=== PATIENT | female | born 1965 | race Caucasian/White ===

== ENCOUNTER 2016-07-15 17:08 | Emergency (ER) | payer BC, MEDICAID, OTHER ==
--- NOTE | 2016-07-15 17:32 | ED PDOC ---
Arrival/HPI - General Chief Complaint: Respiratory Distress Time Seen by Provider: 07/15/16 17:26 - History of Present Illness Narrative History of Present Illness (Text): 07/15/16 17:28 51F c/o sob and productive cough for the last few days. chest pain only when coughing. no fever. denies sig pmh. no smoking. she went to an urgent care today and they sent her here bc of her ecg. Past Medical History - Infectious Disease Hx of Infectious Diseases: None - Reproductive Menopause: No - Cardiac Hx Hypertension: Yes - Endocrine/Metabolic Hx Diabetes Mellitus Type 2: Yes - Psychiatric Hx Substance Use: No - Anesthesia Hx Anesthesia: No Family/Social History Family/Social History: Other (nc) Smoking Status: Unknown If Ever Smoked Hx Alcohol Use: No Hx Substance Use: No Allergies/Home Meds Allergies/Adverse Reactions: Allergies No Known Allergies Allergy (Verified 07/15/16 17:24) Home Medications: Home Meds Medication Instructions Recorded Confirmed Liraglutide [Victoza 2-Nicho] 0.6 mg SQ DAILY 07/15/16 07/15/16 MetFORMIN [glucOPHAGE] 500 mg PO BID 07/15/16 07/15/16 amLODIPine [Norvasc] 5 mg PO DAILY 07/15/16 07/15/16 Review of Systems - Review of Systems Constitutional: absent: Fatigue, Fevers Respiratory: SOB, Cough, Sputum. absent: Wheezing Cardiovascular: Edema (chronic) Gastrointestinal: absent: Abdominal Pain, Diarrhea, Nausea, Vomiting Genitourinary Female: absent: Dysuria Physical Exam Vital Signs Reviewed: Yes Vital Signs Temp Pulse Resp BP Pulse Ox 07/15/16 17:08 98.2 F 93 H 16 147/78 98 Appearance: Positive for: Well-Appearing, Non-Toxic, Comfortable Pain Distress: None Mental Status: Positive for: Alert and Oriented X 3 - Systems Exam Pupils: Present: PERRL Mouth: Present: Moist Mucous Membranes Neck: Present: Normal Range of Motion Respiratory/Chest: Present: Clear to Auscultation, Good Air Exchange. No: Respiratory Distress, Accessory Muscle Use Cardiovascular: Present: Regular Rate and Rhythm. No: Murmurs Abdomen: No: Tenderness, Distention Upper Extremity: Present: NORMAL PULSES Lower Extremity: Present: Edema (1+ bilateral ankles) Neurological: Present: GCS=15, Motor Func Grossly Intact, Normal Sensory Function, Other (no focal deficits) Skin: Present: Warm, Dry Psychiatric: Present: Alert, Oriented x 3 Medical Decision Making - RAD Interpretation Radiology Orders: 07/15/16 17:27 CHEST TWO VIEWS (PA/LAT) [RAD] Stat Disposition/Present on Arrival - Present on Arrival History of DVT/PE: No History of Uncontrolled Diabetes: No Urinary Catheter: No History of Decub. Ulcer: No History Surgical Site Infection Following: None
[2016-07-15 17:36] VITALS: TEMP 98.2
--- NOTE | 2016-07-15 17:37 | ED PDOC ---
Arrival/HPI - General Chief Complaint: Respiratory Distress Time Seen by Provider: 07/15/16 17:26 - History of Present Illness Narrative History of Present Illness (Text): 51F c/o productive cough and sob for the last couple days. chest pain only when coughing. no fever. she was sent here for an urgent care bc of her ecg. pmh dm and htn. no smoking. Past Medical History - Infectious Disease Hx of Infectious Diseases: None - Reproductive Menopause: No - Cardiac Hx Hypertension: Yes - Endocrine/Metabolic Hx Diabetes Mellitus Type 2: Yes - Psychiatric Hx Substance Use: No - Anesthesia Hx Anesthesia: No Family/Social History Family/Social History: Other (nc) Smoking Status: Unknown If Ever Smoked Hx Alcohol Use: No Hx Substance Use: No Allergies/Home Meds Allergies/Adverse Reactions: Allergies No Known Allergies Allergy (Verified 07/15/16 17:24) Home Medications: Home Meds Medication Instructions Recorded Confirmed Liraglutide [Victoza 2-Nicho] 0.6 mg SQ DAILY 07/15/16 07/15/16 MetFORMIN [glucOPHAGE] 500 mg PO BID 07/15/16 07/15/16 amLODIPine [Norvasc] 5 mg PO DAILY 07/15/16 07/15/16 Review of Systems - Review of Systems Constitutional: absent: Fevers Respiratory: SOB, Cough, Sputum. absent: Wheezing Cardiovascular: Edema (chronic) Gastrointestinal: absent: Abdominal Pain, Diarrhea, Nausea, Vomiting Genitourinary Female: absent: Dysuria Neurological: absent: Headache Physical Exam Vital Signs Reviewed: Yes Vital Signs Temp Pulse Resp BP Pulse Ox 07/15/16 20:51 89 17 132/84 95 07/15/16 19:08 0 L 07/15/16 19:05 88 16 135/83 96 07/15/16 17:08 98.2 F 93 H 16 147/78 98 Appearance: Positive for: Well-Appearing, Non-Toxic, Comfortable Pain Distress: None Mental Status: Positive for: Alert and Oriented X 3 - Systems Exam Head: Present: Atraumatic Pupils: Present: PERRL Conjunctiva: Present: Normal Mouth: Present: Moist Mucous Membranes Neck: Present: Normal Range of Motion Respiratory/Chest: Present: Clear to Auscultation, Good Air Exchange. No: Respiratory Distress, Accessory Muscle Use Cardiovascular: Present: Regular Rate and Rhythm. No: Murmurs Abdomen: No: Tenderness, Distention Upper Extremity: Present: NORMAL PULSES Lower Extremity: Present: Edema (1+ bilateral ankles) Neurological: Present: GCS=15, Motor Func Grossly Intact, Normal Sensory Function Skin: Present: Warm, Dry Psychiatric: Present: Alert, Oriented x 3 Medical Decision Making ED Course and Treatment: ecg- nsr 87, left axis dev, no acute ischemia - Lab Interpretations Lab Results: 07/15/16 18:02 07/15/16 18:02 Lab Results 07/15/16 18:02: WBC 10.3, RBC 4.76, Hgb 13.5, Hct 39.6, MCV 83.2, MCH 28.4, MCHC 34.1, RDW 13.4, Plt Count 159, MPV 12.2 H, Gran % 79.9 H, Lymph % (Auto) 14.7 L, Mcmullen % (Auto) 3.8, Eos % (Auto) 1.5, Baso % (Auto) 0.1, Gran # 8.22 H, Lymph # 1.5, Mcmullen # 0.4, Eos # 0.2, Baso # 0.01, Sodium 136, Potassium 3.6, Chloride 96 L, Carbon Dioxide 31, Anion Gap 13, BUN 9, Creatinine 0.4 L, Est GFR ( Amer) > 60, Est GFR (Non-Af Amer) > 60, Random Glucose 214 H, Calcium 9.1, Total Bilirubin 1.0, AST 41 H, ALT 53, Alkaline Phosphatase 97, Troponin I < 0.01, Total Protein 8.2, Albumin 4.1, Globulin 4.0, Albumin/ Globulin Ratio 1.0 L - RAD Interpretation Radiology Orders: 07/15/16 17:27 CHEST TWO VIEWS (PA/LAT) [RAD] Stat Disposition/Present on Arrival - Present on Arrival Any Indicators Present on Arrival: No History of DVT/PE: No History of Uncontrolled Diabetes: No Urinary Catheter: No History of Decub. Ulcer: No History Surgical Site Infection Following: None - Disposition Have Diagnosis and Disposition been Completed?: Yes Diagnosis: Bronchitis Disposition: HOME/ ROUTINE Disposition Time: 20:52 Condition: GOOD Discharge Instructions (ExitCare): Acute Bronchitis (ED) Additional Instructions: Please follow up with your doctor. Return to the ER for any worsening symptoms or for any other concerns. Prescriptions: Benzonatate [Tessalon Perles] 100 mg PO Q12H PRN #10 sgl PRN Reason: Cough Albuterol HFA [Ventolin HFA 90 mcg/actuation (8 g)] 1 - 2 puff IH Q6H PRN #1 inhaler PRN Reason: Wheezing Azithromycin [Zithromax] 250 mg PO DAILY #6 tab
[2016-07-15 18:05] LABS: ADD MANUAL DIFF? NO
[2016-07-15 18:08] LABS: BASO # 0.01 K/mm3 (0.0-2.0); BASO % 0.1 % (0.0-3.0); EOS # 0.2 (0.0-0.7); EOS % 1.5 % (1.5-5.0); GRAN # 8.22 (1.4-6.5); GRAN % 79.9 % (50.0-68.0); HEMATOCRIT 39.6 % (36.0-48.0); LYMPH # 1.5 (1.2-3.4); LYMPH % 14.7 % (22.0-35.0); MEAN CELL VOLUME 83.2 fL (80.0-105.0); MEAN CORPUSCULAR HEMOGLOBIN 28.4 pg (25.0-35.0); MEAN CORPUSCULAR HGB CONC 34.1 g/dl (31.0-37.0); MEAN PLATELET VOLUME 12.2 fl (7.0-11.0); MONO # 0.4 (0.1-0.6); MONO % 3.8 % (1.0-6.0); PLATELET COUNT 159 10^3/uL (120.0-450.0); RED CELL DISTRIBUTION WIDTH 13.4 % (11.5-14.5); WHITE BLOOD COUNT 10.3 10^3/ul (4.5-11.0)
[2016-07-15 18:18] LABS: ALKALINE PHOSPHATASE 97 U/L (38-133); ALT/SGPT 53 U/L (7-56); AST/SGOT 41 U/L (15-39); BLOOD UREA NITROGEN 9 mg/dL (7-21); CALCIUM 9.1 mg/dL (8.4-10.5); CARBON DIOXIDE 31 mmol/L (21-33); CHLORIDE 96 mmol/L (98-107); GFR AFRICAN-AMERICAN > 60; GLUCOSE,RANDOM 214 mg/dL (70-110); POTASSIUM 3.6 mmol/L (3.6-5.0); SODIUM 136 mmol/L (132-148); TOTAL PROTEIN 8.2 g/dL (5.8-8.3)
[2016-07-15 18:32] LABS: TROPONIN I < 0.01 ng/mL
[2016-07-15 20:52] VITALS: BP 132/84; PULSE 89; RESP 17; O2SAT 95
--- NOTE | 2016-07-16 10:01 | RAD ---
HISTORY: cough COMPARISON: No prior. TECHNIQUE: Chest PA and lateral FINDINGS: LUNGS: Minor linear atelectasis and or scarring changes both mid to lower lung zones left greater than right. PLEURA: No significant pleural effusion identified. No pneumothorax apparent. CARDIOVASCULAR: Heart appears mildly enlarged. OSSEOUS STRUCTURES: Minor multilevel degenerative spondylosis of the thoracic spine the in addition, minor anterior wedge deformities of at least due to mid to lower thoracic segments noted. . VISUALIZED UPPER ABDOMEN: Normal. OTHER FINDINGS: None. IMPRESSION: Mild linear atelectasis and or scarring changes both mid to lower lung zones left greater than right. Mild cardiomegaly.
--- NOTE | 2016-07-16 11:25 | CARD ---
APPROVED REPORT EKG Measurement Heart [id number] <Conclusion> Normal sinus rhythm Left axis deviation PRWP V 1 - 5 Cannot rule out Anterior infarct, age undetermined
== END 2016-07-15 20:52 | disposition home or self-care (01) ==
LOC: ED 17:08
DX: J20.9 Acute bronchitis, unspecified (principal)